=== PATIENT | female | born 1975 | race Caucasian/White ===

== ENCOUNTER → 2016-07-14 | Outpatient (CLI) | payer BC ==
[~2016-07-14] MED LIST: PRENTAB26 PO
== END | disposition home or self-care (01) ==
LOC: C.LABSPEC 18:05
PROVIDERS: ATTEND Obstetrics & Gynecology
DX: O09.523 Supervision of elderly multigravida, third trimester (principal)

== ENCOUNTER 2016-08-05 01:25 | Inpatient (IN) | payer BC ==
[~2016-08-05] VITALS: Ht 177.8 cm; Wt 91.2 kg
[2016-08-05] MEDS ORDERED: LACTATED RINGER'S 1000ML 1,000 ML IV SCH (01:55)
[2016-08-05] MEDS ORDERED: LACTATED RINGER'S 1000ML 1,000 ML IV PRN (01:55)
[2016-08-05] MEDS ORDERED: CEFAZOLIN IV 1,000 MG in DEXTROSE 5% 50ML 50 ML IV PRN (02:00)
[2016-08-05] MEDS ORDERED: CEFAZOLIN IV 2,000 MG in DEXTROSE 5% 50ML 50 ML IV STA (02:03)
[2016-08-05 02:24] VITALS: Ht 177.8 cm; Wt 91.2 kg
[2016-08-05] MEDS ORDERED: OXYTOCIN 30 UNITS/500ML NSS IV ONE (02:40)
[2016-08-05 02:52] LABS: HEMATOCRIT 38.3 % (37-47); MEAN CORPUSCULAR HGB CONC 35.2 g/dl (32-36); MEAN PLATELET VOLUME 10.5 fL (7.4-10.4); PLATELET COUNT 242 K/uL (130-400); RED BLOOD COUNT 4.35 M/uL (4.2-5.4)
[2016-08-05] MEDS ORDERED: BENZOCAINE 20% AER SPR 82.5 GM CAN EXT PRN (03:15)
[2016-08-05] MEDS ORDERED: LANOLIN OINT EXT PRN ×2 (03:15)
[2016-08-05] MEDS ORDERED: SUPERCREAM 0.870 % 15GM JAR EXT PRN (03:15)
[2016-08-05] MEDS ORDERED: OXYTOCIN 30 UNITS/500ML NSS IV PRN (03:15)
[2016-08-05] MEDS ORDERED: ACETAMINOPHEN 325 MG TAB PO PRN (03:15)
[2016-08-05] MEDS ORDERED: ACETAMINOPHEN/CODEINE 300/30MG TAB PO PRN ×2 (03:15)
--- NOTE | 2016-08-05 04:36 | DELIVERY SUMMARY ---
DATE OF OPERATION: 08/05/2016 The patient is a 40-year-old 3, para 2-0-0-2 white female EDC of 08/06/2016 who presented in active labor. She was 6 cm upon arrival. GBS was positive. SHE IS PENICILLIN ALLERGIC. She was given 1 does of Ancef. She progressed rapidly to 8 cm. Membranes ruptured for clear fluid and she delivered a viable male infant through 1 contraction. Mouth and nasopharynx were suctioned on the perineum. There was vigorous crying and movement of all four limbs on the infant. The cord was clamped and cut. The placenta was expressed intact with a 3-vessel cord. A superficial perineal laceration was not bleeding, it was not repaired. Mother and were doing well after delivery. Estimated blood loss was 300 mL. I attest to the content of the Intraoperative Record and any orders documented therein. Any exceptio ns are noted below.
[2016-08-05 05:03] LABS: CREATININE 0.79 mg/dl (0.60-1.20)
[2016-08-05 08:00] VITALS: BP 120/80; PULSE 59; TEMP 36.5; O2SAT 96
[2016-08-05] MEDS: DOCUSATE SODIUM 100 MG CAP PO SCH ×2 (08:46→19:59)
[2016-08-05] MEDS: PRENATAL VITAMIN TAB PO SCH (08:46)
[2016-08-05 12:25] VITALS: BP 148/94; PULSE 68; TEMP 36.7; O2SAT 98
[2016-08-05 12:26] VITALS: BP 136/82
[2016-08-05] MEDS: IBUPROFEN 600 MG TAB PO PRN (15:16)
[2016-08-05 15:30] VITALS: BP 159/94; PULSE 65; TEMP 36.9; O2SAT 97
[2016-08-05 20:00] VITALS: BP 151/91; PULSE 71; TEMP 36.7
[2016-08-05 23:35] VITALS: BP 127/78; PULSE 74; TEMP 36.7
[2016-08-06 03:50] VITALS: BP 134/85; PULSE 66; TEMP 36.8
[2016-08-06 06:49] LABS: HEMATOCRIT 36.8 % (37-47)
[2016-08-06 07:10] VITALS: BP 143/91; PULSE 73; TEMP 36.7; O2SAT 96
--- NOTE | 2016-08-06 07:49 | Progress Note ---
Subjective Aug 06, 2016. Subjective conversation w/ patient, physical exam Ambulation: ambulating normally Voiding: no voiding problems Passing Gas: Yes Diet Tolerance: Regular Diet Lochia: Small Feeding Type: Breast Feeding Review of Systems Constitutional: No chills, No fever Respiratory: No cough, No shortness of breath Cardiac: No chest pain Abdomen: No nausea, No pain, No vomiting Objective Vital Signs Date Time Temp Pulse Resp B/P Pulse Ox O2 Delivery O2 Flow Rate FiO2 08/06/16 03:50 36.8 66 18 134/85 Room Air 08/05/16 23:35 36.7 74 18 127/78 Room Air 08/05/16 23:35 Room Air 08/05/16 20:00 36.7 71 18 151/91 Room Air 08/05/16 15:30 97 Room Air 08/05/16 15:30 36.9 65 18 159/94 97 Room Air 08/05/16 12:26 136/82 08/05/16 12:25 36.7 68 16 148/94 98 Room Air 08/05/16 08:00 Room Air 08/05/16 08:00 36.5 59 16 120/80 96 Room Air Physical Exam General Appearance: WELL-APPEARING, NO APPARENT DISTRESS Respiratory/Chest: lungs clear, normal breath sounds Cardiovascular: regular rate, rhythm, no murmur Abdomen: normal bowel sounds, non tender, soft Fundus: Firm, Non-Tender, Relation to Umbilicus (at umbilicus) Extremities: non-tender, no calf tenderness Laboratory Results Last 24 Hours Test 08/06/16 06:35 Hemoglobin 13.0 g/dL Hematocrit 36.8 % Assessment and Plan Post- Day#: 1 Continue Routine Care: s/p Day 1 - Vital signs reviewed and wnl - Hgb reviewed 13 - Blood type: A-, GBS+, Rubella immune - Pt doing well clinically - Encourage ambulation, monitor and control pain w/motrin prn, resume regular diet, monitor lochia - Encourage breast feeding - CONTINUE ROUTINE POST CARE Resident Physician Supervision Note: I interviewed and examined the patient. Discussed with Dr. Carolina and agree with findings and plan as documented in the note. Any exceptions or clarifications are listed here: [None] Documented By: Ruthann Regan
[2016-08-06] MEDS: DOCUSATE SODIUM 100 MG CAP PO SCH ×2 (08:13→22:00)
[2016-08-06] MEDS: PRENATAL VITAMIN TAB PO SCH (08:14)
[2016-08-06] MEDS: IBUPROFEN 600 MG TAB PO PRN ×2 (08:15→18:33)
[2016-08-06 16:30] VITALS: BP 132/90; PULSE 68; TEMP 36.8
[2016-08-06] MEDS ORDERED: BISACODYL 5 MG TABEC PO SCH (20:00)
[2016-08-06 23:00] VITALS: BP 138/89; PULSE 76; TEMP 37
[2016-08-07] MEDS: IBUPROFEN 600 MG TAB PO PRN (04:33)
[2016-08-07 08:00] VITALS: BP 137/90; PULSE 68; TEMP 36.7
--- NOTE | 2016-08-07 08:04 | Progress Note ---
Subjective Aug 07, 2016. Subjective conversation w/ patient, physical exam Ambulation: ambulating normally Voiding: no voiding problems Passing Gas: Yes Diet Tolerance: Regular Diet Lochia: Small Feeding Type: Breast Feeding Review of Systems Constitutional: No chills, No fever Respiratory: No cough, No shortness of breath Cardiac: No chest pain Abdomen: No nausea, No pain Objective Vital Signs Date Time Temp Pulse Resp B/P Pulse Ox O2 Delivery O2 Flow Rate FiO2 08/06/16 23:00 37.0 76 20 138/89 Room Air 08/06/16 23:00 Room Air 08/06/16 16:30 36.8 68 20 132/90 Room Air 08/06/16 16:30 Room Air Physical Exam General Appearance: WELL-APPEARING, NO APPARENT DISTRESS Respiratory/Chest: lungs clear, normal breath sounds Cardiovascular: regular rate, rhythm, no murmur Abdomen: normal bowel sounds, non tender, soft Fundus: Firm, Non-Tender, Relation to Umbilicus (2 CM BELOW) Extremities: non-tender, no calf tenderness Assessment and Plan Post- Day#: 2 Continue Routine Care: s/p Day 2 - Vitals reviewed and wnl - Hgb 13 yesterday - Blood type: A-, GBS-, Rubella immune - Patient doing well clinically - Encourage ambulation, monitor and control pain with motrin prn, resume regular diet, monitor lochia - Encourage breast feeding - Pt counselled on discharge instructions - PATIENT DISCHARGED TODAY Resident Physician Supervision Note: I was present with Dr. Carolina during the history and exam. I discussed the case with the resident and agree with the findings and plan as documented in the note. Any exceptions or clarifications are listed here: PPD#2, doing well, DC to home. Discharge instructions discussed. FU 6w. Documented By: Susan Torres
--- NOTE | 2016-08-07 08:06 | Discharge Instructions ---
Discharge Instructions Admission Reason for Admission: Normal Labor Discharge Discharge Diagnosis / Problem: Spontaneous Vaginal Delivery Discharge Goals Goal(s): Routine recovery after delivery Medications Continue Dispensed Medications: supercream, dermaplast, tucks Activity Recommendations Activity Limitations: per Instructions/Follow-up section . Instructions / Follow-Up Instructions / Follow-Up ACTIVITY RECOMMENDATIONS: * Gradual return to full activity over the next 2-3 weeks. * No lifting - nothing heavier than baby over the next 2-3 weeks. * Do not engage in vigorous exercise, sexual activity or sports until cleared by your physician. * Do not drive or operate any motorized equipment until cleared by your physician. * You may shower/bathe daily. MEDICATIONS: For discomfort or pain, you may use Acetaminophen (Tylenol), Ibuprofen (Advil), or Naproxen (Aleve) following the package directions. For constipation you may use Colace following the package directions. BREAST CARE: If you are not breast feeding: * Wear a supportive bra 24 hours a day for one to two weeks. * Avoid stimulating your breasts and nipples as much as possible during the first few weeks after delivery. * When taking a shower, have the warm water hit your back, not breasts. * When your breasts feel full, apply ice packs. Usually three to four times a day helps ease the discomfort. * Take a mild pain medication (Tylenol / Motrin) when you are uncomfortable. If breast feeding: * Use breast milk to lubricate nipples. Lansinoh cream may be used for sore nipples. You do not need to remove cream prior to breast feeding. If using a different brand of cream, check the label for directions regarding removal of cream prior to nursing. * Wear a supportive bra. * If having problems with breasts or breast feeding, call a integrity consultant or your health care provider. EPISIOTOMY CARE: After delivery, if you have an episiotomy (stitches), the following steps will ease discomfort and aid healing. * For the first 24 hours after delivery, place ice packs next to your episiotomy to help reduce swelling. * After the first 24 hour-period, sitz baths, either portable or in the tub, are suggested. A shower with a shower arm sprayed over the episiotomy may be comforting. * Aileen care should be done after each voiding and bowel movement. Squirt warm water from a plastic bottle over the perineum (region of the body between the anus and urinary opening) and pat dry. * Use Dermoplast to ease discomfort. Shake container. [place] directly over the episiotomy. Place a Tucks on a clean sanitary pad next to your episiotomy. SPECIAL CARE INSTRUCTIONS: When you are discharged from the hospital, it is important for you to follow the instructions listed below: * During the first week at home, you should be able to care for yourself and your baby. In addition, the usual light household activities are encouraged. * Limit your activities to the way you feel. Do not try to clean the house or move furniture. Be sensible. * If you actively engage in sports and have done so up until the time of your delivery, you may resume these activities as soon as you feel able. This may take up to one month or even longer. Use good judgment. * Continue to take your vitamins for at least six weeks after the of your baby. * Your diet need not be limited unless you were on a special diet before your delivery. Breast-feeding mothers need around 2500 calories per day and at least 64-80 ounces of fluid per day (8 to 10 glasses). * You should eat foods from the four major food groups. Crash diets or fad diets are to be avoided. Eating lean meats, fresh fruits and vegetables, low-fat dairy products, high fiber foods and a regular exercise program, will help you get back to your pre- weight without putting your health at risk. * Constipation is sometimes a problem after delivery. Take a mild laxative as needed. If breast feeding, Milk of Magnesia is acceptable to use. You may use a suppository or Fleets enema if no episiotomy. * A daily shower or tub bath is suggested. Be sure to thoroughly and gently dry the perineum. * A bloody vaginal discharge will usually continue until around four weeks post . A small amount of bleeding may continue for as long as six weeks. Vaginal discharge changes from the bright red bleeding after delivery to pink then brownish and finally yellowish-pink before becoming white and disappearing. * Bleeding may increase with activity. Your first period may come in 4-8 weeks. If you are breast feeding, your period may be delayed even longer. * [place] (sex) can begin whenever both you and your partner feel comfortable and do not have any form of genital infection. It is recommended that you wait at least six weeks for internal and external healing to occur. If you have questions, please talk to your health care practitioner. A condom should be used to prevent infection and . * Foreplay, gentle intercourse and lubrication is very important the first several times to prevent pain. A water-based lubricant such as K-Y jelly or Astroglide may be used. * If you have RH negative blood and your baby is RH positive, you will receive RHOGAM by injection prior to discharge. The nurse will give you a card to keep with you that has the date and place that you received RHOGAM after delivery. * During your care, you had a Rubella screen done to check for the presence of rubella antibodies in your blood. If your test was negative, you will receive a Rubella vaccine prior to discharge. This vaccine may cause a fever, soreness at the injection site and flu-like symptoms. If these symptoms persist, notify your health care practitioner. is not advised for one month after a Rubella vaccine. * Verbalizes understanding of car seat law as reviewed with patient nursing. * Car Seat hand-out given and reviewed with patient by nursing. * Shaken baby information reviewed with patient by nursing. Call you doctor if: * Heavy bleeding (saturating several pads an hour) or passing clots the size of your fist. * A fever >101 degrees F (38.3 degrees C) on two occasions four hours apart and /or chills. * Unusual pain in the pelvic or vaginal areas. * "Baby Blues" lasting longer than two weeks. If you have any questions or concerns, call your health care practitioner at . FOLLOW UP VISIT: * Please call the office at to schedule a 6 week examination. It is important you keep this appointment. It is important for you to make arrangements for either yearly or twice yearly check-ups thereafter. Current Hospital Diet Patient's current hospital diet: Regular OB Diet Discharge Diet Recommended Diet: Regular OB Diet Pending Studies Studies pending at discharge: no Medical Emergencies . Who to Call and When: Medical Emergencies: If at any time you feel your situation is an emergency, please call 911 immediately. . Non-Emergent Contact Non-Emergency issues call your: Primary Care Provider, Nurse Extern . . "Provider Documentation" section prepared by Awais Carolina. VTE Core Measure Inpt VTE Proph given/why not?: Treatment not indicated
[2016-08-07 10:40] VITALS: BP_DIAS 90; PULSE 68; TEMP 36.7
[2016-08-07] MEDS: PRENATAL VITAMIN TAB PO SCH (11:25)
[2016-08-07] MEDS: DOCUSATE SODIUM 100 MG CAP PO SCH (11:30)
[2016-08-07 15:15] VITALS: BP 148/95; PULSE 82; TEMP 36.8; O2SAT 96
== END 2016-08-07 16:05 | disposition home or self-care (01) | DRG 775 ==
LOC: C.OPB 01:25 → C.LD 01:31 → C.OPB 02:05 → C.LD 02:06 → C.OBG 06:56
PROVIDERS: ADMIT Obstetrics & Gynecology; ATTEND Obstetrics & Gynecology
PROC: 10E0XZZ Delivery of Products of Conception, External Approach (ICD-10-PCS; principal; 2016-08-05)
DX: O70.0 First degree perineal laceration during delivery (principal); Z3A.38 38 weeks gestation of pregnancy; Z37.0 Single live birth